=== PATIENT | female | born 1950 | race Caucasian/White ===

== ENCOUNTER → 2018-01-10 | Outpatient (CLI) | payer MEDICARE, OTHER ==
--- NOTE | 2018-01-10 08:56 | RADIOLOGY IMAGING REPORT ---
FACILITY: [facility] PATIENT NAME: Marisabel Ortiz : 1950 MR: [id number] V: [id number] EXAM DATE: ORDERING PHYSICIAN: ALICIA COLE TECHNOLOGIST: Location: [facility] [place] Patient: Marisabel Ortiz : 1950 Visit/Account:[id number] Date of Sevice: 01/10/2018 EXAMINATION: CT abdomen without IV contrast HISTORY: Left upper quadrant pain for 2 years, increased with bending over. COMPARISON: CT abdomen and pelvis from 06/13/2011. TECHNIQUE: Axial images were taken through the abdomen without intravenous contrast. Sagittal and c oronal reformatted images are also submitted. One of the following dose optimization techniques was utilized in the performance of this exam: Autom ated exposure control; adjustment of the mA and/or kV according to the patient's size; or use of an i terative reconstruction technique. Specific details can be referenced in the facility's radiology C T exam operational policy. FINDINGS: Please note that without intravenous contrast, sensitivity to detection of parenchymal disease is espinoza ited. Liver/biliary: Negative. Pancreas: Negative. Spleen: The spleen is normal in size measuring 9 cm in length. No focal abnormality. Adrenal glands: Negative. Kidneys: Punctate nonobstructing right renal stone. No hydronephrosis on either side. Bowel: Negative. Peritoneum/retroperitoneum/mesenteries: Negative. Vessels: Negative. Musculoskeletal/body wall: Mild degenerative changes of the lower lumbar spine. No focal left rib ab normality. Lymph nodes: Negative. Lower chest: Negative. IMPRESSION: 1. No explanation for left upper quadrant pain. 2. Punctate nonobstructing right renal stone. Report Dictated By: Herminia Christianson MD at 01/10/2018 8:44 AM Report E-Signed By: Herminia Christianson MD at 01/10/2018 8:52 AM WSN:[email or web address]
== END ==
LOC: CT 00:58
PROVIDERS: ATTEND Nurse Practitioner Family
DX: N20.0 Calculus of kidney (principal)
CPT/HCPCS: 74150

== ENCOUNTER → 2018-04-02 | Outpatient (CLI) | payer MEDICARE, OTHER | LOC: RESP 01:31 | PROVIDERS: ATTEND Nurse Practitioner Family | DX: J44.9 Chronic obstructive pulmonary disease, unspecified (principal) | CPT/HCPCS: 94060 ==

== ENCOUNTER → 2018-05-31 | Outpatient (CLI) | payer MEDICARE, OTHER ==
--- NOTE | 2018-06-06 08:29 | RADIOLOGY IMAGING REPORT ---
FACILITY: [facility] PATIENT NAME: ASHLEY VELASCO : [id number] MR: [id number] V: [id number] EXAM DATE: ORDERING PHYSICIAN: ALICIA COLE TECHNOLOGIST: Yuli Rondon PROCEDURE:BILATERAL DIGITAL SCREENING MAMMOGRAM WITH CAD ASSISTED INTERPRETATION & 3D TOMOSYNTHESIS COMPARISON:Prior mammograms dated 02/11/15, 02/05/14 INDICATIONS:SCREENING FINDINGS: Scattered fibroglandular densities are seen throughout the breasts. The parenchymal pattern has remained stable allowing for difference in mammographic technique & patient positioning. DIAGNOSTIC CATEGORY 1--NEGATIVE. RECOMMENDATIONS: ROUTINE MAMMOGRAM AND CLINICAL EVALUATION. IMPRESSION: BIRADS 1: Negative. No significant abnormality is seen. Dictated by: Lilian Martinez M.D. on 06/04/2018 at 17:09 Transcribed by: [email or web address] on 06/05/2018 at 13:25 Approved by: Lilian Martinez M.D. on 06/06/2018 at 8:28 [facility]
== END ==
LOC: MAMO 03:40
PROVIDERS: ATTEND Nurse Practitioner Family
DX: Z12.31 Encounter for screening mammogram for malignant neoplasm of breast (principal)
CPT/HCPCS: 77063; 77067